=== PATIENT | female | born 1960 ===

== ENCOUNTER 2017-02-03 12:14 | Observation (INO) | payer OTHER ==
[2017-02-03] MEDS ORDERED: Aspirin 325 mg EC Tablets PO STA (13:36)
[2017-02-03 13:59] LABS: BASO % 0.5 % (0.0-2.0); EOS # 0.2 K/uL (0.0-0.7); EOS % 2.1 % (0.0-4.0); HEMOGLOBIN 14.3 g/dL (11.0-16.0); LYMPH # 2.9 K/uL (1.0-4.3); LYMPH % 30.4 % (20.0-40.0); MEAN CORPUSCULAR HEMOGLOBIN 29.4 pg (27.0-31.0); MEAN PLATELET VOLUME 9.6 fL (7.2-11.7); MONO # 0.6 K/uL (0.0-0.8); MONO % 6.6 % (0.0-10.0); NEUT # 5.8 K/uL (1.8-7.0); NEUT % 60.4 % (50.0-75.0); RBC 4.85 Mil/uL (3.80-5.20); RED CELL DISTRIBUTION WIDTH 13.1 % (11.5-14.5); WHITE BLOOD COUNT 9.6 K/uL (4.8-10.8)
[2017-02-03 14:08] LABS: PARTIAL THROMBOPLASTIN TIME 35 SECONDS (21-34); PROTHROMBIN TIME 10.8 SECONDS (9.7-12.2)
--- NOTE | 2017-02-03 14:08 | RAD ---
PROCEDURE: CHEST RADIOGRAPH, 1 VIEW HISTORY: chest pain COMPARISON: No prior comparison available. FINDINGS: LUNGS: Clear. PLEURA: No pneumothorax or pleural fluid seen. CARDIOVASCULAR: The cardiac silhouette appears mildly prominent or technically magnified. OSSEOUS STRUCTURES: No significant abnormalities. VISUALIZED UPPER ABDOMEN: Normal. OTHER FINDINGS: None. IMPRESSION: No acute infiltrate pleural effusion or pneumothorax is identified. Cardiac silhouette appears mildly enlarged or is technically magnified. No pulmonary vascular derangement.
[2017-02-03 14:10] LABS: ALBUMIN 4.1 g/dL (3.5-5.0); D DIMER < 200 ng/mlDDU (0-243)
[2017-02-03 14:13] LABS: ALB/GLOB RATIO 1.1 (1.0-2.1); AST/SGOT 38 U/L (14-36); GFR AFRICAN-AMERICAN > 60; GFR NON-AFRICAN AMERICAN > 60
[2017-02-03 14:14] LABS: ALT/SGPT 57 U/L (9-52); BLOOD UREA NITROGEN 13 mg/dL (7-17); CALCIUM 9.1 mg/dl (8.6-10.4)
[2017-02-03 14:22] LABS: CK-MB 1.23 ng/mL (0.0-3.38)
--- NOTE | 2017-02-03 15:49 | C.PDOC ---
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 History/Exam Limitations: language barrier Onset/Duration Of Symptoms: Hrs (since this morning) Current Symptoms Are (Timing): Still Present Severity: Moderate Quality: "Pain" Modifying Factors: Other Indicated Below Alleviating Factors: None Additional History Per: Prior Records Past Medical History Reviewed: Historical Data, Nursing Documentation, Vital Signs Vital Signs: Last Vital Signs Temp 97.9 F 02/03/17 12:41 Pulse 74 02/03/17 12:41 Resp 18 02/03/17 12:41 BP 143/86 02/03/17 12:41 Pulse Ox 98 02/03/17 15:49 - Medical History PMH: HTN, Hypercholesterolemia Other Surgeries: C-spine surgery Family History: States: Unknown Family Hx - Social History Hx Tobacco Use: No Hx Alcohol Use: No Hx Substance Use: No Review Of Systems Except As Marked, All Systems Reviewed And Found Negative. Constitutional: Negative for: Fever, Weakness Cardiovascular: Positive for: Chest Pain Respiratory: Negative for: Shortness of Breath, Hemoptysis Gastrointestinal: Negative for: Vomiting, Abdominal Pain Musculoskeletal: Positive for: Leg Pain (left, for a few days) Neurological: Negative for: Weakness, Numbness, Seizures, Altered Mental Status Physical Exam - Physical Exam Appears: Non-toxic, No Acute Distress Skin: Normal Color, Warm, Dry Head: Atraumatic, Normacephalic Eye(s): bilateral: Normal Inspection, PERRL, EOMI Neck: Normal ROM, Supple Chest: Symmetrical, No Deformity Cardiovascular: Rhythm Regular Respiratory: Normal Breath Sounds, No Accessory Muscle Use Gastrointestinal/Abdominal: Soft, No Tenderness Back: No CVA Tenderness Extremity: Normal ROM, Tenderness (left lower medial leg) Pulses: Left Dorsalis Pedis: Normal Neurological/Psych: Oriented x3, Normal Motor, Normal Sensation ED Course And Treatment - Laboratory Results Result Diagrams: 02/03/17 13:54 02/03/17 13:54 Lab Interpretation: No Acute Changes ECG: Interpreted By Me, Viewed By Me ECG Rhythm: Sinus Rhythm, Nonspecific Changes ECG Interpretation: Abnormal Interpretation Of ECG: T wave flat in precordial leads. Rate From EC O2 Sat by Pulse Oximetry: 98 Pulse Ox Interpretation: Normal - Radiology CXR: Viewed By Me, Read By Radiologist CXR Interpretation: Yes: No Acute Disease - CT Scan/US LE duplex Other Rad Studies (CT/US): Radiology Report Reviewed CT/US Interpretation: Negative for DVT. Progress - Interventions Interventions:: Observation - Medications Administered Oral: Aspirin - Data Reviewed Data Reviewed: Lab, Diagnostic imaging, EKG, Old records - Patient Status Patient status: Mostly improved - Continuity of Care Discussed patient case with:: Patient, ED Nurse, On-call PMD-pt unassigned Disposition Discussed With DrArron: Patrick Young Comment: He accepted pt on hospitalist service. Doctor Will See Patient In The: Hospital Counseled Patient/Family Regarding: Studies Performed, Diagnosis - Disposition Disposition: HOSPITALIZED Disposition Time: 16:10 Condition: FAIR - Clinical Impression Clinical Impression: Chest pain, Leg pain, left
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
[2017-02-03 21:11] LABS: CK-MB 0.92 ng/mL (0.0-3.38)
[2017-02-04 02:37] LABS: CK-MB 0.79 ng/mL (0.0-3.38)
[2017-02-04 07:31] LABS: BASO % 0.5 % (0.0-2.0); EOS # 0.2 K/uL (0.0-0.7); EOS % 2.4 % (0.0-4.0); HEMOGLOBIN 14.6 g/dL (11.0-16.0); LYMPH # 2.7 K/uL (1.0-4.3); LYMPH % 28.9 % (20.0-40.0); MEAN CELL VOLUME 88.2 fL (81.0-99.0); MEAN CORPUSCULAR HEMOGLOBIN 29.8 pg (27.0-31.0); MEAN CORPUSCULAR HGB CONC 33.8 g/dL (33.0-37.0); MEAN PLATELET VOLUME 9.2 fL (7.2-11.7); MONO # 0.8 K/uL (0.0-0.8); MONO % 8.2 % (0.0-10.0); NEUT # 5.5 K/uL (1.8-7.0); NRBC % 0.1 % (0.0-2.0); RBC 4.89 Mil/uL (3.80-5.20); RED CELL DISTRIBUTION WIDTH 12.8 % (11.5-14.5); WHITE BLOOD COUNT 9.2 K/uL (4.8-10.8)
[2017-02-04 08:15] LABS: ALBUMIN 3.9 g/dL (3.5-5.0)
[2017-02-04 08:18] LABS: ALB/GLOB RATIO 1.2 (1.0-2.1); ALT/SGPT 52 U/L (9-52); AST/SGOT 31 U/L (14-36); BLOOD UREA NITROGEN 14 mg/dL (7-17); GFR AFRICAN-AMERICAN > 60; GFR NON-AFRICAN AMERICAN > 60
[2017-02-04 08:19] LABS: CALCIUM 9.3 mg/dl (8.6-10.4)
--- NOTE | 2017-02-04 14:04 | CP.PCM.DIS ---
<Tasia Swain - Last Filed: 02/04/17 14:06> Provider - Provider Date of Admission: 02/03/17 16:11 Attending physician: Patrick Young MD Primary care physician: [facility] Time Spent in preparation of Discharge (in minutes): 45 Diagnosis - Discharge Diagnosis (1) Chest pain Status: Resolved Comment: please see summary for details. (2) HTN (hypertension) Status: Acute Comment: please take lisinopril 10 mg daily Hospital Course - Lab Results Lab Results: Most Recent Lab Values WBC 9.2 K/uL (4.8-10.8) 02/04/17 07:03 RBC 4.89 Mil/uL (3.80-5.20) 02/04/17 07:03 Hgb 14.6 g/dL (11.0-16.0) 02/04/17 07:03 Hct 43.2 % (34.0-47.0) 02/04/17 07:03 MCV 88.2 fL (81.0-99.0) 02/04/17 07:03 MCH 29.8 pg (27.0-31.0) 02/04/17 07:03 MCHC 33.8 g/dL (33.0-37.0) 02/04/17 07:03 RDW 12.8 % (11.5-14.5) 02/04/17 07:03 Plt Count 256 K/uL (130-400) 02/04/17 07:03 MPV 9.2 fL (7.2-11.7) 02/04/17 07:03 Neut % (Auto) 60.0 % (50.0-75.0) 02/04/17 07:03 Lymph % (Auto) 28.9 % (20.0-40.0) 02/04/17 07:03 [place] % (Auto) 8.2 % (0.0-10.0) 02/04/17 07:03 Eos % (Auto) 2.4 % (0.0-4.0) 02/04/17 07:03 Baso % (Auto) 0.5 % (0.0-2.0) 02/04/17 07:03 Neut # 5.5 K/uL (1.8-7.0) 02/04/17 07:03 Lymph # 2.7 K/uL (1.0-4.3) 02/04/17 07:03 [place] # 0.8 K/uL (0.0-0.8) 02/04/17 07:03 Eos # 0.2 K/uL (0.0-0.7) 02/04/17 07:03 Baso # 0.0 K/uL (0.0-0.2) 02/04/17 07:03 PT 10.8 SECONDS (9.7-12.2) 02/03/17 13:54 INR 1.0 02/03/17 13:54 APTT 35 SECONDS (21-34) H 02/03/17 13:54 D-Dimer, Quantitative < 200 ng/mlDDU (0-243) 02/03/17 13:54 Sodium 141 mmol/L (132-148) 02/04/17 07:03 Potassium 3.9 mmol/L (3.6-5.2) 02/04/17 07:03 Chloride 106 mmol/L (98-107) 02/04/17 07:03 Carbon Dioxide 24 mmol/L (22-30) 02/04/17 07:03 Anion Gap 15 (10-20) 02/04/17 07:03 BUN 14 mg/dL (7-17) 02/04/17 07:03 Creatinine 0.7 MG/DL (0.7-1.2) 02/04/17 07:03 Est GFR ( Amer) > 60 02/04/17 07:03 Est GFR (Non-Af Amer) > 60 02/04/17 07:03 Random Glucose 88 mg/dL (65-105) 02/04/17 07:03 Calcium 9.3 mg/dl (8.6-10.4) 02/04/17 07:03 Phosphorus 5.2 mg/dL (2.5-4.5) H 02/04/17 07:03 Magnesium 2.0 mg/dL (1.6-2.3) 02/04/17 07:03 Total Bilirubin 0.8 mg/dL (0.2-1.3) 02/04/17 07:03 AST 31 U/L (14-36) 02/04/17 07:03 ALT 52 U/L (9-52) 02/04/17 07:03 Alkaline Phosphatase 94 U/L (38-126) 02/04/17 07:03 Total Creatine Kinase 75 U/L (30-135) 02/04/17 02:14 CK-MB (Mass) 0.79 ng/mL (0.0-3.38) 02/04/17 02:14 Troponin I, Quant < 0.0120 ng/mL (0.00-0.120) 02/04/17 02:14 Total Protein 7.1 g/dL (6.3-8.3) 02/04/17 07:03 Albumin 3.9 g/dL (3.5-5.0) 02/04/17 07:03 Globulin 3.2 gm/dL (2.2-3.9) 02/04/17 07:03 Albumin/Globulin Ratio 1.2 (1.0-2.1) 02/04/17 07:03 TSH 3rd Generation 7.56 mIU/L (0.46-4.68) H 02/04/17 07:03 Influenza Typ A,B (EIA) Negative for flu a/b (NEGATIVE) 02/03/17 17:23 - Hospital Course Hospital Course: "CC: "left leg pain and chest pain" 57 year old female with PMHx of HTN, hyperlipidemia presents to the ED for 2 day history of left lower extremity pain. Patient reports she noticed two bruises appear on her left upper medial calf and over left lower medial calf. Bruises are very tender and feel swollen to touch. She denies trauma to the area and has not had falls. She reports no medical problems, but admits she has been off "water medication" and "cholesterol medication" for the past 20 days. They were given to her at an urgent care center about 2 month ago after she presented for swelling in her cheeks and in her legs. Patient is also complaining of left sided chest pain that is non radiating and began yesterday. Chest pain started all of a sudden and was rated at a 9/10. Episode lasted for half an hour and resolved on its own. Chest pain has occurred one other time in the past 6 months ago and resolved on its own. Patient later experienced headache over occipital and temporal regions which resolved this morning. She decided to come to the emergency room and when she was walking to the hospital she felt generalized weakness and like she was too weak to walk properly. She denies SOB on exertion, fevers, chills, runny nose, sore throat, nausea, vomiting, diarrhea, constipation, abdominal pain." In ED, UDAY was negative, EKG showed NSR 70 bpm could not rule out anterior infarct. CXR showed mildly enlarged cardiac silhouette. Next two ROMIs were negative. Patient had left leg pain and venous dopplers were done to r/o DVT and were negative. For hypertension patient was started on Lisinopril 10 mg daily. FLP 01/13/17 showed Triglycerides 210, Chol 160, LDL 97, HDL 37. Dietary consult placed for low Na+, low cholesterol, low fat diet. Patient feeling no chest pain on 02/04 and no leg pain. Patient cleared for discharge as per Dr. Young. This is a summary of the hospital course. Please see the chart for full details. Discharge Exam - Head Exam Head Exam: NORMAL INSPECTION, NORMOCEPHALIC - Eye Exam Eye Exam: Conjunctival injection - ENT Exam ENT Exam: Mucous Membranes Moist - Neck Exam Neck exam: Full Rom - Respiratory Exam Respiratory Exam: Clear to PA & Lateral, NORMAL BREATHING PATTERN, UNREMARKABLE. absent: Rales, Rhonchi, Wheezes, Respiratory Distress, Stridor - Cardiovascular Exam Cardiovascular Exam: REGULAR RHYTHM, RRR. absent: Gallop, Rubs, Systolic Murmur - GI/Abdominal Exam GI & Abdominal Exam: Normal Bowel Sounds, Soft. absent: Distended, Firm, Guarding - Extremities Exam Extremities exam: full ROM, normal inspection, pedal pulses present - Back Exam Back exam: NORMAL INSPECTION - Neurological Exam Neurological exam: Alert, Oriented x3 - Psychiatric Exam Psychiatric exam: Normal Affect, Normal Mood - Skin Skin Exam: Intact, Normal Color, Warm Discharge Plan - Discharge Medications Prescriptions: Lisinopril [Zestril] 10 mg PO DAILY #30 tab - Follow Up Plan Condition: FAIR Disposition: HOME/ ROUTINE Instructions: Lisinopril (By mouth), Chest Pain (DC), Heart Healthy Diet (DC), Hypertension (DC) Additional Instructions: Patient stable for discharge as per Dr. Bar Young. Instructions: 1. Patient to start taking Lisinopril 10 mg once a day with breakfast. 2. Please follow up with the [facility] health clinic at [facility] for your appointment on February 17., floor B. If symptoms worsen or return please return to Emergency Room Immediately. Referrals: [facility] [Provider Group] <Patrick Young - Last Filed: 02/04/17 20:09> Provider - Provider Date of Admission: 02/03/17 16:11 Attending physician: Patrick Young MD Hospital Course - Lab Results Lab Results: Most Recent Lab Values WBC 9.2 K/uL (4.8-10.8) 02/04/17 07:03 RBC 4.89 Mil/uL (3.80-5.20) 02/04/17 07:03 Hgb 14.6 g/dL (11.0-16.0) 02/04/17 07:03 Hct 43.2 % (34.0-47.0) 02/04/17 07:03 MCV 88.2 fL (81.0-99.0) 02/04/17 07:03 MCH 29.8 pg (27.0-31.0) 02/04/17 07:03 MCHC 33.8 g/dL (33.0-37.0) 02/04/17 07:03 RDW 12.8 % (11.5-14.5) 02/04/17 07:03 Plt Count 256 K/uL (130-400) 02/04/17 07:03 MPV 9.2 fL (7.2-11.7) 02/04/17 07:03 Neut % (Auto) 60.0 % (50.0-75.0) 02/04/17 07:03 Lymph % (Auto) 28.9 % (20.0-40.0) 02/04/17 07:03 [place] % (Auto) 8.2 % (0.0-10.0) 02/04/17 07:03 Eos % (Auto) 2.4 % (0.0-4.0) 02/04/17 07:03 Baso % (Auto) 0.5 % (0.0-2.0) 02/04/17 07:03 Neut # 5.5 K/uL (1.8-7.0) 02/04/17 07:03 Lymph # 2.7 K/uL (1.0-4.3) 02/04/17 07:03 [place] # 0.8 K/uL (0.0-0.8) 02/04/17 07:03 Eos # 0.2 K/uL (0.0-0.7) 02/04/17 07:03 Baso # 0.0 K/uL (0.0-0.2) 02/04/17 07:03 PT 10.8 SECONDS (9.7-12.2) 02/03/17 13:54 INR 1.0 02/03/17 13:54 APTT 35 SECONDS (21-34) H 02/03/17 13:54 D-Dimer, Quantitative < 200 ng/mlDDU (0-243) 02/03/17 13:54 Sodium 141 mmol/L (132-148) 02/04/17 07:03 Potassium 3.9 mmol/L (3.6-5.2) 02/04/17 07:03 Chloride 106 mmol/L (98-107) 02/04/17 07:03 Carbon Dioxide 24 mmol/L (22-30) 02/04/17 07:03 Anion Gap 15 (10-20) 02/04/17 07:03 BUN 14 mg/dL (7-17) 02/04/17 07:03 Creatinine 0.7 MG/DL (0.7-1.2) 02/04/17 07:03 Est GFR ( Amer) > 60 02/04/17 07:03 Est GFR (Non-Af Amer) > 60 02/04/17 07:03 Random Glucose 88 mg/dL (65-105) 02/04/17 07:03 Calcium 9.3 mg/dl (8.6-10.4) 02/04/17 07:03 Phosphorus 5.2 mg/dL (2.5-4.5) H 02/04/17 07:03 Magnesium 2.0 mg/dL (1.6-2.3) 02/04/17 07:03 Total Bilirubin 0.8 mg/dL (0.2-1.3) 02/04/17 07:03 AST 31 U/L (14-36) 02/04/17 07:03 ALT 52 U/L (9-52) 02/04/17 07:03 Alkaline Phosphatase 94 U/L (38-126) 02/04/17 07:03 Total Creatine Kinase 75 U/L (30-135) 02/04/17 02:14 CK-MB (Mass) 0.79 ng/mL (0.0-3.38) 02/04/17 02:14 Troponin I, Quant < 0.0120 ng/mL (0.00-0.120) 02/04/17 02:14 Total Protein 7.1 g/dL (6.3-8.3) 02/04/17 07:03 Albumin 3.9 g/dL (3.5-5.0) 02/04/17 07:03 Globulin 3.2 gm/dL (2.2-3.9) 02/04/17 07:03 Albumin/Globulin Ratio 1.2 (1.0-2.1) 02/04/17 07:03 TSH 3rd Generation 7.56 mIU/L (0.46-4.68) H 02/04/17 07:03 Influenza Typ A,B (EIA) Negative for flu a/b (NEGATIVE) 02/03/17 17:23 Attending/Attestation - Attestation I have personally seen and examined this patient.: Yes I have fully participated in the care of the patient.: Yes I have reviewed all pertinent clinical information, including history, physical exam and plan: Yes Notes (Text): 02/04/17 20:07 Patient was seen and examined earlier today right before discharge Discharge plan was thoroughly gone over with the Resident. Patrick Young D.O.
--- NOTE | 2017-02-04 16:40 | CARD ---
APPROVED REPORT EXAM: Two-dimensional and M-mode echocardiogram with Doppler and color Doppler. Other Information Quality : GoodRhythm : NSR INDICATION Chest Pain RISK FACTORS Hypertension Hyperlipidemia M-Mode DIMENSIONS RVDd1.76 (2.1-3.2cm)Left Atrium (MM)3.95 (2.5-4.0cm) IVSd0.78 (0.7-1.1cm)Aortic Root2.77 (2.2-3.7cm) LVDd5.17 (4.0-5.6cm)Aortic Cusp Exc.1.51 (1.5-2.0cm) PWd0.85 (0.7-1.1cm)FS (%) 33 % LVDs3.48 (2.0-3.8cm)LVEF (%)61 (>50%) Mitral Valve MV E Cpejcpbq74.1cm/sMV A Myhawiql35.8cm/sE/A ratio0.8 TDI E/Lateral E'0.0E/Medial E'0.0 Tricuspid Valve TR Peak Lttebuwg676nn/sTR Peak Gr.[id number] LEFT VENTRICLE The left ventricle is normal size. There is normal left ventricular wall thickness. The left ventricular function is normal. The left ventricular ejection fraction is within the normal range. There is normal LV segmental wall motion. Transmitral Doppler flow pattern is Grade I-abnormal relaxation pattern. Normal left atrial pressure by Tissue Doppler. RIGHT VENTRICLE The right ventricle is normal size. There is normal right ventricular wall thickness. ATRIA The left atrium size is normal. The right atrium size is normal. AORTIC VALVE The aortic valve is normal in structure. No aortic regurgitation is present. MITRAL VALVE The mitral valve is normal in structure. Mitral regurgitation is trace. TRICUSPID VALVE The tricuspid valve is normal in structure. There is trace to mild tricuspid regurgitation. Right ventricular systolic pressure is estimated at less than 30 mmHg. GREAT VESSELS The aortic root is normal in size. The IVC is normal in size and collapses >50% with inspiration. PERICARDIAL EFFUSION There is no pericardial effusion. <Conclusion> Normal biventricular function. No valvular abnormality. No pericardial effusion.
[2017-02-04 16:51] VITALS: BP 128/73; PULSE 81; RESP 18; TEMP 97.7; O2SAT 96
--- NOTE | 2017-02-05 10:20 | VASCLAB ---
PROCEDURE: Left Lower Extremity Venous Duplex Exam. HISTORY: Pain, r/o DVT PRIORS: None. TECHNIQUE: Left common femoral, femoral, popliteal and posterior tibial, peroneal and great saphenous veins were evaluated. Flow was assessed with color Doppler, compressibility, assessment of phasic flow and augmentation response. Report prepared by DARIA Thurston, RVT FINDINGS: LEFT: 1. Common Femoral Vein: 1.1. Compressibility - Fully compressible: Thrombus - None : Flow - Phasic: Augmentation -Normal: Reflux - None. 2. Femoral Vein: 2.1. Compressibility - Fully compressible: Thrombus - None: Flow - Phasic: Augmentation -Normal: Reflux - None. 3. Popliteal Vein: 3.1. Compressibility - Fully compressible: Thrombus - None: Flow - Phasic: Augmentation -Normal: Reflux - None. 4. Posterior Tibial Vein: 4.1. Compressibility - Fully compressible: Thrombus - None: Flow - Phasic: Augmentation -Normal: Reflux - None. 5. Peroneal Vein: 5.1. Compressibility - Fully compressible: Thrombus - None: Flow - Phasic: Augmentation -Normal: Reflux - None. 6. Great Saphenous Vein: 6.1. Compressibility - Fully compressible: Thrombus - None: Flow - Phasic: Augmentation - Normal: Reflux - None. OTHER FINDINGS: IMPRESSION: No evidence of deep or superficial vein thrombosis of the left lower extremity with excellent venous flow. Normal valve function noted of the left side. Normal venous flow noted in the right common femoral vein.
--- NOTE | 2017-02-05 11:32 | CARD ---
APPROVED REPORT EKG Measurement Heart [id number] CO [id number] <Conclusion> Normal sinus rhythm Poor R wave progression may be positional.
--- NOTE | 2017-02-06 12:38 | CARD ---
APPROVED REPORT EKG Measurement Heart [id number] MD [id number] <Conclusion> Normal sinus rhythm Prolonged QT Abnormal ECG
--- NOTE | 2017-02-06 12:38 | CARD ---
APPROVED REPORT EKG Measurement Heart [id number] QT0T0 QTc0 <Conclusion> No QRS complexes found, no ECG analysis possible
== END 2017-02-04 16:05 | disposition home or self-care (01) ==
LOC: C.ER 12:14 → C.6T 16:11
PROVIDERS: ADMIT Family Medicine; ATTEND Family Medicine
DX: R07.9 Chest pain, unspecified (principal); E78.5 Hyperlipidemia, unspecified; I10 Essential (primary) hypertension; Z87.891 Personal history of nicotine dependence; Z79.82 Long term (current) use of aspirin
CPT/HCPCS: 36415; 71010; 80053; 83735; 84100; 84443; 84484; 85025; 85378; 85610; 85730; 87804; 93306; 93971; 99285; G0378